=== PATIENT | male | born 1960 | race Caucasian/White ===

== ENCOUNTER 2022-03-04 13:23 | Emergency (ER) | payer MEDICAID ==
[~2022-03-04] VITALS: Ht 167.6 cm; Wt 78.0 kg
[2022-03-04] MEDS ORDERED: KETOROLAC TROMETHAMINE 10 MG TABLET PO ONE (14:45)
[2022-03-04 15:39] VITALS: BP 148/95
== END 2022-03-04 15:41 | disposition home or self-care (01) ==
LOC: EMS 13:25
DX: R03.0 Elevated blood-pressure reading, without diagnosis of hypertension (principal); M25.462 Effusion, left knee
CPT/HCPCS: 99282; 99283